=== PATIENT | male | born 1945 | race Caucasian/White ===

== ENCOUNTER 2018-04-10 07:53 | Day surgery (SDC) | payer OTHER ==
[~2018-04-10] VITALS: Ht 170.2 cm; Wt 83.9 kg
[~2018-04-10 07:53] MED LIST: 24 HOUR ALLER15.8 ML BOTH NARES; CLARITIN,ALAVAR10 MG PO; FLOVENT DISKUS1 DIS2 IH; PRILOSEC20 MG PO; REQUIP1 MG PO; SINEMET 25-1001 EACH PO; SINGULAIR10 MG PO; VENTOLIN HFA18 GM IH; ZANTAC300 MG PO
[2018-04-10 08:37] VITALS: BP 127/79
[2018-04-10 12:02] VITALS: BP 142/77
[2018-04-10 12:42] VITALS: BP 124/72
== END 2018-04-10 12:48 | disposition home or self-care (01) ==
LOC: SDC 07:53
DX: H35.81 Retinal edema (principal); H35.372 Puckering of macula, left eye; J44.9 Chronic obstructive pulmonary disease, unspecified; G20 Parkinson's disease; K21.9 Gastro-esophageal reflux disease without esophagitis; Z88.1 Allergy status to other antibiotic agents; Z91.041 Radiographic dye allergy status
CPT/HCPCS: J0690; J0713; J2250; J3300